=== PATIENT | female | born 1995 | race Two or more races ===

== ENCOUNTER 2016-09-22 19:32 | Emergency (ER) | payer BC ==
[~2016-09-22] VITALS: Ht 154.9 cm; Wt 96.8 kg
[2016-09-22] MEDS ORDERED: PROAAER10 INH (19:44)
[2016-09-22 21:18] LABS: CONTROL LINE HCG INT CTR LINE PRESENT
--- NOTE | 2016-09-22 22:10 | REPUSA ---
Clinical history: Pain. Findings: Real-time transabdominal and transvaginal ultrasound images of the pelvis were obtained. An anteverted uterus is noted, measuring 7.9 x 2.7 x 5.3 cm. The uterus demonstrates normal echotexture and echogenicity. The endometrial stripe measures 8 mm and is within normal limits. The right ovary measures 3.0 x 1.6 x 2.2 cm. The left ovary measures 3.4 x 2.3 x 3.3 cm. No adnexal masses are seen . Color Doppler flow is seen within both ovaries. There is no evidence of free fluid. Impression: No focal abnormality demonstrated. No evidence of an intrauterine at this time . Differential diagnosis includes early , missed , or ectopic . Follow-up w ith serial serum beta hCG levels is recommended for further evaluation.
[2016-09-22 23:01] VITALS: BP 120/81
== END 2016-09-22 23:05 | disposition home or self-care (01) ==
LOC: M ED 19:32
DX: O20.0 Threatened abortion (principal); O99.511 Diseases of the respiratory system complicating pregnancy, first trimester; J45.909 Unspecified asthma, uncomplicated; Z3A.00 Weeks of gestation of pregnancy not specified

== ENCOUNTER → 2016-09-24 | Outpatient (CLI) | payer BC ==
[~2016-09-24] MED LIST: PROAAER10 INH
== END ==
LOC: M LAB 09:49
PROVIDERS: ATTEND Obstetrics & Gynecology
DX: O26.851 Spotting complicating pregnancy, first trimester (principal); Z3A.00 Weeks of gestation of pregnancy not specified

== ENCOUNTER → 2016-09-26 | Outpatient (CLI) | payer BC | LOC: M LAB 07:37 | PROVIDERS: ATTEND Obstetrics & Gynecology | DX: O20.0 Threatened abortion (principal); Z3A.00 Weeks of gestation of pregnancy not specified ==

== ENCOUNTER → 2016-12-02 | Outpatient (REF) | payer BC ==
[~2016-12-02] MED LIST changes: +KEFL500C17 PO; +PREN1TAB11 PO; +SERT25TA PO
== END ==
LOC: M LAB REF 12:22
PROVIDERS: ATTEND Advanced Practice Midwife
DX: O36.80X0 Pregnancy with inconclusive fetal viability, not applicable or unspecified (principal); Z3A.00 Weeks of gestation of pregnancy not specified

== ENCOUNTER → 2017-01-07 | Outpatient (REF) | payer BC ==
[2017-01-07 19:58] LABS: MEAN CORPUSCULAR HEMOGLOBIN 30.6 pg (27.0-33.0); MEAN CORPUSCULAR HGB CONC 33.7 g/dl (32.0-36.5); MEAN CORPUSCULAR VOLUME 90.9 fl (80.0-96.0); PLATELET COUNT, AUTOMATED 361 10^3/uL (150-450); RED CELL DISTRIBUTION WIDTH 12.3 % (11.5-14.5); WHITE BLOOD COUNT 8.9 10^3/uL (4.0-10.0)
[2017-01-07 20:56] LABS: HCG, SERUM QUANTITATIVE 2442 MIU/ML
[2017-01-09 11:54] LABS: HBsAg Prenatal NEGATIVE (NEGATIVE)
== END ==
LOC: M LAB REF 16:47
PROVIDERS: ATTEND Advanced Practice Midwife
DX: O36.80X0 Pregnancy with inconclusive fetal viability, not applicable or unspecified (principal); Z3A.00 Weeks of gestation of pregnancy not specified

== ENCOUNTER 2017-01-31 10:19 | Emergency (ER) | payer BC ==
[~2017-01-31] VITALS: Ht 154.9 cm; Wt 57.8 kg
[~2017-01-31 10:19] MED LIST changes: -KEFL500C17 PO; -PREN1TAB11 PO; -SERT25TA PO
[2017-01-31] MEDS ORDERED: PREN1TAB11 PO (10:27)
[2017-01-31] MEDS ORDERED: SERT25TA PO (10:27)
[2017-01-31 12:10] LABS: BASO % 0.4 % (0.0-1.0); EOS # 0.3 10^3/uL (0.0-0.50); EOS % 2.6 % (0.0-3.0); IMMATURE GRANULOCYTE % 0.5 % (0-0); LYMPH # 1.9 10^3/uL (1.5-6.5); LYMPH % 18.1 % (24.0-44.0); MEAN CORPUSCULAR HEMOGLOBIN 31.1 pg (27.0-33.0); MEAN CORPUSCULAR HGB CONC 34.3 g/dl (32.0-36.5); MEAN CORPUSCULAR VOLUME 90.7 fl (80.0-96.0); MONO # 0.9 10^3/uL (0.0-0.8); MONO % 8.3 % (0.0-5.0); NEUTROPHILS # 7.3 10^3/uL (1.8-7.7); NEUTROPHILS % 70.1 % (36.0-66.0); PLATELET COUNT, AUTOMATED 300 10^3/uL (150-450); RED CELL DISTRIBUTION WIDTH 12.2 % (11.5-14.5); WHITE BLOOD COUNT 10.4 10^3/uL (4.0-10.0)
[2017-01-31 12:22] LABS: INR 0.99
[2017-01-31 12:29] LABS: CONTROL LINE HCG INT CTR LINE PRESENT
[2017-01-31 12:34] LABS: ANION GAP 8 MEQ/L (8-16); BLOOD UREA NITROGEN 5 MG/DL (7-18); CALCIUM LEVEL 9.4 MG/DL (8.5-10.1); CARBON DIOXIDE LEVEL 27 MEQ/L (21-32); CHLORIDE LEVEL 104 MEQ/L (98-107); CREATININE FOR GFR 0.53 MG/DL (0.55-1.02); GLUCOSE, FASTING 85 MG/DL (70-105); POTASSIUM SERUM 4.2 MEQ/L (3.5-5.1); SODIUM LEVEL 139 MEQ/L (136-145)
--- NOTE | 2017-01-31 13:05 | REP ---
Chest one-view HISTORY: Cough Comparison: None The lungs are clear. The heart is normal in size. The pulmonary vasculature is normal in appearance. Impression: No acute disease. Signed by Jose Aguilar MD 01/31/2017 12:56 P
[2017-01-31] MEDS ORDERED: ONDANSETRON 4MG/2ML VIAL (J2405) IV ONE (13:30)
[2017-01-31] MEDS ORDERED: NS 500 ML IV ONE (13:45)
[2017-01-31] MEDS ORDERED: KEFL500C17 PO (13:58)
[2017-01-31 14:04] VITALS: BP 103/63
--- NOTE | 2017-02-01 07:23 | ECGEPIP ---
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
== END 2017-01-31 14:08 | disposition home or self-care (01) ==
LOC: M ED 10:19
DX: O21.0 Mild hyperemesis gravidarum (principal); O26.891 Other specified pregnancy related conditions, first trimester; R55 Syncope and collapse; Z3A.08 8 weeks gestation of pregnancy
CPT/HCPCS: 71010; 80048; 81001; 82550; 82553; 84703; 85025; 85610; 93005; 96374; 99284; J2405

== ENCOUNTER → 2017-04-20 | Outpatient (REF) | payer BC ==
[2017-04-20 14:00] LABS: INFLUENZA A AMPLIFICATION NEGATIVE (NEGATIVE); INFLUENZA B AMPLIFICATION NEGATIVE (NEGATIVE)
== END ==
LOC: M LAB REF 12:59
DX: R68.83 Chills (without fever) (principal)

== ENCOUNTER 2017-06-07 13:55 | Outpatient (CLI) | payer BC ==
[2017-06-07 15:03] LABS: AMORPHOUS SEDIMENT SMALL (NEGATIVE); APPEARANCE, URINE HAZY (CLEAR); BACTERIA, URINE AUTO 3+ (NEGATIVE); BILIRUBIN, URINE AUTO NEGATIVE (NEGATIVE); BLOOD, URINE BLOOD NEGATIVE (NEGATIVE); COLOR, URINE YELLOW (YELLOW); GLUCOSE, URINE (UA) AUTO NEGATIVE (NEGATIVE); KETONE, URINE AUTO NEGATIVE (NEGATIVE); LEUKOCYTE ESTERASE, URINE AUTO 1+ (NEGATIVE); NITRITE, URINE AUTO NEGATIVE (NEGATIVE); PROTEIN, URINE AUTO NEGATIVE (NEGATIVE); RBC, URINE AUTO 3 /HPF (0-3); SPECIFIC GRAVITY URINE AUTO 1.009 (1.002-1.035); SQUAMOUS EPITHELIAL CELL UR AU 7 /HPF (0-6); UROBILINOGEN, URINE AUTO 0.2 mg/dL (0.0-2.0); WBC, URINE AUTO 6 /HPF (0-3)
[2017-06-07] MEDS: CEPHALEXIN 500 MG CAP PO (16:05)
== END 2017-06-07 16:09 | disposition home or self-care (01) ==
LOC: M LDO 13:55
DX: O99.89 Other specified diseases and conditions complicating pregnancy, childbirth and the puerperium (principal); Z3A.26 26 weeks gestation of pregnancy; O62.0 Primary inadequate contractions; O23.42 Unspecified infection of urinary tract in pregnancy, second trimester; N13.30 Unspecified hydronephrosis
CPT/HCPCS: 76775

== ENCOUNTER → 2017-06-09 | Outpatient (CLI) | payer OTHER ==
[2017-06-09 12:17] LABS: HEMATOCRIT 33.5 % (36.0-47.0); HEMOGLOBIN 11.4 g/dl (12.0-16.0); MEAN CORPUSCULAR HEMOGLOBIN 31.4 pg (27.0-33.0); MEAN CORPUSCULAR VOLUME 92.3 fl (80.0-96.0); PLATELET COUNT, AUTOMATED 264 10^3/uL (150-450); RED BLOOD COUNT 3.63 10^6/uL (4.00-5.40); RED CELL DISTRIBUTION WIDTH 12.4 % (11.5-14.5); WHITE BLOOD COUNT 11.6 10^3/uL (4.0-10.0)
[2017-06-09 12:44] LABS: GLUCOSE CHALLENGE TEST 1 HOUR 108 MG/DL (LESS THAN 140)
== END ==
LOC: M LAB 10:29
DX: Z34.81 Encounter for supervision of other normal pregnancy, first trimester (principal)
CPT/HCPCS: 82950

== ENCOUNTER 2017-07-04 05:24 | Outpatient (CLI) | payer OTHER | END 2017-07-04 06:03 | disposition home or self-care (01) | LOC: M LDO 05:24 | DX: O26.893 Other specified pregnancy related conditions, third trimester (principal); R10.13 Epigastric pain; Z3A.30 30 weeks gestation of pregnancy | CPT/HCPCS: 59025 ==

== ENCOUNTER 2017-07-17 21:55 | Outpatient (CLI) | payer OTHER | END 2017-07-17 23:30 | disposition home or self-care (01) | LOC: M LDO 21:55 | DX: O36.8130 Decreased fetal movements, third trimester, not applicable or unspecified (principal); Z3A.32 32 weeks gestation of pregnancy | CPT/HCPCS: 59025 ==

== ENCOUNTER 2017-08-04 12:41 | Outpatient (CLI) | payer OTHER ==
[~2017-08-04 12:41] MED LIST changes: +PRENATAL VITAMINS CHEWABLE TABLET PO; -PROAAER10 INH
[2017-08-04] MEDS: LR 1,000 ML IV ×2 (13:43→14:45)
[2017-08-04 14:07] LABS: BASO % 0.1 % (0.0-1.0); EOS % 0.3 % (0.0-3.0); HEMATOCRIT 31.8 % (36.0-47.0); HEMOGLOBIN 10.8 g/dl (12.0-15.5); IMMATURE GRANULOCYTE % 0.6 % (0-3.0); LYMPH # 2.2 10^3/uL (1.5-6.5); LYMPH % 19.9 % (24.0-44.0); MEAN CORPUSCULAR HEMOGLOBIN 30.1 pg (27.0-33.0); MEAN CORPUSCULAR VOLUME 88.6 fl (80.0-96.0); MONO # 0.8 10^3/uL (0.0-0.8); NEUTROPHILS % 72.1 % (36.0-66.0); PLATELET COUNT, AUTOMATED 302 10^3/uL (150-450); RED BLOOD COUNT 3.59 10^6/uL (4.00-5.40); RED CELL DISTRIBUTION WIDTH 12.5 % (11.5-14.5); WHITE BLOOD COUNT 11.1 10^3/uL (4.0-10.0)
[2017-08-04 14:27] LABS: ANION GAP 8 MEQ/L (8-16); BLOOD UREA NITROGEN 6 MG/DL (7-18); CALCIUM LEVEL 8.7 MG/DL (8.5-10.1); CARBON DIOXIDE LEVEL 23 MEQ/L (21-32); CHLORIDE LEVEL 108 MEQ/L (98-107); CREATININE FOR GFR 0.53 MG/DL (0.55-1.30); GLUCOSE, FASTING 71 MG/DL (70-100); POTASSIUM SERUM 3.8 MEQ/L (3.5-5.1); SODIUM LEVEL 139 MEQ/L (136-145)
[2017-08-04 15:11] LABS: APPEARANCE, URINE CLEAR (CLEAR); BACTERIA, URINE AUTO 2+ (NEGATIVE); BILIRUBIN, URINE AUTO NEGATIVE (NEGATIVE); BLOOD, URINE BLOOD NEGATIVE (NEGATIVE); COLOR, URINE STRAW (YELLOW); GLUCOSE, URINE (UA) AUTO NEGATIVE (NEGATIVE); KETONE, URINE AUTO TRACE mg/dL (NEGATIVE); LEUKOCYTE ESTERASE, URINE AUTO NEGATIVE (NEGATIVE); NITRITE, URINE AUTO NEGATIVE (NEGATIVE); PROTEIN, URINE AUTO NEGATIVE (NEGATIVE); RBC, URINE AUTO 0 /HPF (0-3); SPECIFIC GRAVITY URINE AUTO 1.004 (1.002-1.035); SQUAMOUS EPITHELIAL CELL UR AU 0 /HPF (0-6); UROBILINOGEN, URINE AUTO 0.2 mg/dL (0.0-2.0); WBC, URINE AUTO 1 /HPF (0-3)
[2017-08-04 15:22] LABS: AMPHETAMINES URINE REFLEX NEGATIVE (NEGATIVE); BARBITURATES URINE REFLEX NEGATIVE (NEGATIVE); BENZODIAZEPINES URINE REFLEX NEGATIVE (NEGATIVE); CANNABINOIDS URINE REFLEX NEGATIVE (NEGATIVE); COCAINE METABOLITE URINE REFLE NEGATIVE (NEGATIVE); METHADONE URINE REFLEX NEGATIVE (NEGATIVE); OPIATES URINE REFLEX NEGATIVE (NEGATIVE); PHENCYCLIDINE URINE REFLEX NEGATIVE (NEGATIVE)
[2017-08-04] MEDS ORDERED: TERBUTALINE SULFATE 1 MG/ML VIAL (J3105) As Ordered (15:24)
[2017-08-04] MEDS ORDERED: PERCOCET 5MG/325MG TAB PO (15:30)
[2017-08-04] MEDS: TERBUTALINE SULFATE 1 MG/ML VIAL (J3105) SC (15:36)
[2017-08-04] MEDS: TAMSULOSIN 0.4 MG CAP PO (16:18)
[2017-08-04] MEDS ORDERED: OXYTOCIN DRIP 30 UNITS in APPROPRIATE DILUENT 1 EA IV (16:28)
[2017-08-04] MEDS ORDERED: MEASLES,MUMPS,RUBELLA VACCINE INJ (MMR-II) (90707) SC (16:30)
[2017-08-04] MEDS ORDERED: METHYLERGONOVINE MALEATE 0.2 MG TAB PO (16:30)
[2017-08-04] MEDS ORDERED: DOCUSATE SODIUM 100 MG CAP PO (16:30)
[2017-08-04] MEDS ORDERED: DIBUCAINE 1% OINTMENT 30GM TOP (16:30)
[2017-08-04] MEDS ORDERED: RHOGAM 300 MCG (1500 IU) INJ (J2790) IM (16:30)
[2017-08-04] MEDS ORDERED: ACETAMINOPHEN 500 MG TAB PO (16:30)
[2017-08-04] MEDS ORDERED: IBUPROFEN 800 MG TAB PO (16:30)
== END 2017-08-04 19:03 | disposition home or self-care (01) ==
LOC: M LDO 12:41
DX: O26.893 Other specified pregnancy related conditions, third trimester (principal); R10.32 Left lower quadrant pain; O26.833 Pregnancy related renal disease, third trimester; Z3A.34 34 weeks gestation of pregnancy
CPT/HCPCS: J3105

== ENCOUNTER → 2017-08-10 | Outpatient (REF) | payer OTHER | LOC: M LAB REF 17:25 | DX: Z34.83 Encounter for supervision of other normal pregnancy, third trimester (principal); Z3A.35 35 weeks gestation of pregnancy ==

== ENCOUNTER 2017-08-12 04:21 | Outpatient (CLI) | payer OTHER ==
[2017-08-12] MEDS: LR 1,000 ML IV (05:30)
[2017-08-12 05:46] LABS: BASO % 0.3 % (0.0-1.0); EOS # 0.1 10^3/uL (0.0-0.50); EOS % 0.8 % (0.0-3.0); HEMATOCRIT 30.8 % (36.0-47.0); HEMOGLOBIN 10.2 g/dl (12.0-15.5); LYMPH # 2.7 10^3/uL (1.5-6.5); LYMPH % 25.9 % (24.0-44.0); MEAN CORPUSCULAR HEMOGLOBIN 29.7 pg (27.0-33.0); MEAN CORPUSCULAR HGB CONC 33.1 g/dl (32.0-36.5); MEAN CORPUSCULAR VOLUME 89.8 fl (80.0-96.0); MONO % 9.5 % (0.0-5.0); NEUTROPHILS # 6.6 10^3/uL (1.8-7.7); NEUTROPHILS % 62.5 % (36.0-66.0); PLATELET COUNT, AUTOMATED 249 10^3/uL (150-450); RED BLOOD COUNT 3.43 10^6/uL (4.00-5.40); RED CELL DISTRIBUTION WIDTH 12.6 % (11.5-14.5); WHITE BLOOD COUNT 10.6 10^3/uL (4.0-10.0)
[2017-08-12 05:56] LABS: APPEARANCE, URINE CLEAR (CLEAR); BACTERIA, URINE AUTO 1+ (NEGATIVE); BILIRUBIN, URINE AUTO NEGATIVE (NEGATIVE); BLOOD, URINE BLOOD NEGATIVE (NEGATIVE); COLOR, URINE STRAW (YELLOW); GLUCOSE, URINE (UA) AUTO NEGATIVE (NEGATIVE); KETONE, URINE AUTO NEGATIVE (NEGATIVE); LEUKOCYTE ESTERASE, URINE AUTO NEGATIVE (NEGATIVE); NITRITE, URINE AUTO NEGATIVE (NEGATIVE); PROTEIN, URINE AUTO NEGATIVE (NEGATIVE); RBC, URINE AUTO 1 /HPF (0-3); SPECIFIC GRAVITY URINE AUTO 1.004 (1.002-1.035); SQUAMOUS EPITHELIAL CELL UR AU 1 /HPF (0-6); UROBILINOGEN, URINE AUTO 0.2 mg/dL (0.0-2.0); WBC, URINE AUTO 1 /HPF (0-3)
== END 2017-08-12 07:57 | disposition home or self-care (01) ==
LOC: M LDO 04:21
DX: O26.893 Other specified pregnancy related conditions, third trimester (principal); R10.30 Lower abdominal pain, unspecified; Z87.442 Personal history of urinary calculi; Z3A.36 36 weeks gestation of pregnancy
CPT/HCPCS: 76775

== ENCOUNTER 2017-08-28 11:39 | Inpatient (IN) | payer OTHER ==
[2017-08-28] MEDS ORDERED: LACTATED RINGER'S 1000 ML IV (12:15)
[2017-08-28 12:42] LABS: HEMATOCRIT 30.8 % (36.0-47.0); HEMOGLOBIN 10.2 g/dl (12.0-15.5); MEAN CORPUSCULAR HEMOGLOBIN 28.9 pg (27.0-33.0); MEAN CORPUSCULAR HGB CONC 33.1 g/dl (32.0-36.5); MEAN CORPUSCULAR VOLUME 87.3 fl (80.0-96.0); PLATELET COUNT, AUTOMATED 288 10^3/uL (150-450); RED BLOOD COUNT 3.53 10^6/uL (4.00-5.40); RED CELL DISTRIBUTION WIDTH 13.2 % (11.5-14.5); WHITE BLOOD COUNT 13.5 10^3/uL (4.0-10.0)
[2017-08-28 13:04] LABS: ALT/SGPT 14 U/L (12-78); AST/SGOT 27 U/L (7-37); BILIRUBIN,TOTAL 1.1 MG/DL (0.2-1.0); CREATININE FOR GFR 0.66 MG/DL (0.55-1.30); LDH LACTATE DEHYDROGENASE 272 U/L (84-246); URIC ACID 4.7 MG/DL (2.6-6.0)
[2017-08-28 13:52] LABS: CREATININE,RANDOM URINE 56.3 MG/DL
[2017-08-28] MEDS: miSOPROStol 50 MCG 1/2 TAB (S0191) PO (14:32)
[2017-08-28] MEDS: LR 1,000 ML IV (21:52)
[2017-08-28] MEDS: OXYTOCIN DRIP 30 UNITS in APPROPRIATE DILUENT 1 EA IV (23:23)
[2017-08-29 05:32] LABS: HEMATOCRIT 29.9 % (36.0-47.0); MEAN CORPUSCULAR HEMOGLOBIN 29.2 pg (27.0-33.0); MEAN CORPUSCULAR HGB CONC 33.4 g/dl (32.0-36.5); MEAN CORPUSCULAR VOLUME 87.4 fl (80.0-96.0); PLATELET COUNT, AUTOMATED 261 10^3/uL (150-450); RED BLOOD COUNT 3.42 10^6/uL (4.00-5.40); RED CELL DISTRIBUTION WIDTH 13.3 % (11.5-14.5); WHITE BLOOD COUNT 12.9 10^3/uL (4.0-10.0)
[2017-08-29 06:04] LABS: ALT/SGPT 13 U/L (12-78); AST/SGOT 19 U/L (7-37); BILIRUBIN,TOTAL 1.1 MG/DL (0.2-1.0); CREATININE FOR GFR 0.65 MG/DL (0.55-1.30); LDH LACTATE DEHYDROGENASE 187 U/L (84-246); URIC ACID 4.4 MG/DL (2.6-6.0)
[2017-08-29] MEDS ORDERED: FENTANYL 2MCG/ML ROPIVACAINE 0.2% IN 0.9% NACL 200ML IVBAG As Ordered (11:58)
[2017-08-29] MEDS ORDERED: LACTATED RINGER'S 1000 ML IV (14:30)
[2017-08-29] MEDS ORDERED: NALOXONE INJ 0.4 MG/1 ML VIAL (J2310) IV (14:30)
[2017-08-29] MEDS ORDERED: EPIDURAL/PCA KEYS XX (14:30)
[2017-08-29] MEDS ORDERED: FENTANYL/ROPIVACAINE/NACL BAG 200 ML EPIDURAL (14:30)
[2017-08-29] MEDS ORDERED: REFRIGERATOR IV KEYS XX (14:30)
[2017-08-29] MEDS ORDERED: diphenhydrAMINE INJ 50MG/ML VIAL (J1200) IV (14:30)
[2017-08-29] MEDS ORDERED: ePHEDrine SULFATE 25 MG/5 ML(5MG/ML) SYRINGE IV (14:30)
[2017-08-29] MEDS ORDERED: EPIDURAL COMMENT XX (14:30)
[2017-08-29] MEDS: ONDANSETRON 4MG/2ML VIAL (J2405) IV (19:38)
[2017-08-29] MEDS ORDERED: OXYTOCIN 30 UNITS IN 0.9% NaCl 500ML IV BAG (J2590) As Ordered (20:02)
[2017-08-29] MEDS: LR 1,000 ML IV (21:56)
[2017-08-30] MEDS ORDERED: BICITRA 30ML SOLN UDC As Ordered (02:30)
[2017-08-30 03:04] LABS: CORD GAS ABE A -11.6; CORD GAS ABE V -11.8; CORD GAS HCO3 A 18.6 MEQ/L; CORD GAS HCO3 V 17.7 MEQ/L; CORD GAS O2 SAT A 21.4 %; CORD GAS PCO2 A 61.3 mmHg; CORD GAS PCO2 V 55.2 mmHg; CORD GAS PH A 7.101 UNITS; CORD GAS PH V 7.125 UNITS; CORD GAS PO2 A 16.9 mmHg; CORD GAS PO2 V 16.2 mmHg; CORD GAS SBC V 13.9 MEQ/L; CORD GAS TCO2 A 20.5 MEQ/L; CORD GAS TCO2 V 19.4 MEQ/L
[2017-08-30] MEDS: OXYTOCIN DRIP 30 UNITS in APPROPRIATE DILUENT 1 EA IV ×6 (03:17→21:31)
[2017-08-30] MEDS ORDERED: ANUSOL HC CREAM 30GM TOP (03:30)
[2017-08-30] MEDS: METHYLERGONOVINE MALEATE 0.2 MG/ML VIAL (J2210) IM (05:37)
[2017-08-30] MEDS: ACETAMINOPHEN 500 MG TAB PO ×2 (05:54→19:41)
[2017-08-30 08:15] LABS: HEMATOCRIT 22.1 % (36.0-47.0); HEMOGLOBIN 7.3 g/dl (12.0-15.5); MEAN CORPUSCULAR HEMOGLOBIN 29.1 pg (27.0-33.0); PLATELET COUNT, AUTOMATED 215 10^3/uL (150-450); RED BLOOD COUNT 2.51 10^6/uL (4.00-5.40); RED CELL DISTRIBUTION WIDTH 13.5 % (11.5-14.5); WHITE BLOOD COUNT 25.9 10^3/uL (4.0-10.0)
[2017-08-30 08:37] LABS: ALT/SGPT 17 U/L (12-78); AST/SGOT 43 U/L (7-37); BILIRUBIN,TOTAL 1.8 MG/DL (0.2-1.0); CREATININE FOR GFR 0.99 MG/DL (0.55-1.30); LDH LACTATE DEHYDROGENASE 419 U/L (84-246); URIC ACID 5.9 MG/DL (2.6-6.0)
[2017-08-30] MEDS: PRENATAL VITAMINS CHEWABLE TABLET PO (09:00)
[2017-08-30] MEDS: DOCUSATE SODIUM 100 MG CAP PO ×2 (09:00→19:40)
[2017-08-30] MEDS: IBUPROFEN 800 MG TAB PO (10:51)
[2017-08-30] MEDS: DIBUCAINE 1% OINTMENT 30GM TOP (19:41)
[2017-08-31] MEDS: OXYTOCIN DRIP 30 UNITS in APPROPRIATE DILUENT 1 EA IV ×3 (05:30→13:30)
[2017-08-31] MEDS: IBUPROFEN 800 MG TAB PO (05:52)
[2017-08-31] MEDS: ONDANSETRON 4MG/2ML VIAL (J2405) IV (06:24)
[2017-08-31 06:56] LABS: HEMATOCRIT 16.8 % (36.0-47.0); MEAN CORPUSCULAR HEMOGLOBIN 29.6 pg (27.0-33.0); MEAN CORPUSCULAR HGB CONC 33.3 g/dl (32.0-36.5); MEAN CORPUSCULAR VOLUME 88.9 fl (80.0-96.0); PLATELET COUNT, AUTOMATED 188 10^3/uL (150-450); RED BLOOD COUNT 1.89 10^6/uL (4.00-5.40); RED CELL DISTRIBUTION WIDTH 13.8 % (11.5-14.5); WHITE BLOOD COUNT 19.1 10^3/uL (4.0-10.0)
[2017-08-31 07:00] LABS: HEMOGLOBIN 5.6 g/dl (12.0-15.5)
[2017-08-31] MEDS: PRENATAL VITAMINS CHEWABLE TABLET PO (07:40)
[2017-08-31] MEDS: DOCUSATE SODIUM 100 MG CAP PO ×2 (07:40→19:41)
[2017-08-31] MEDS: MEASLES,MUMPS,RUBELLA VACCINE INJ (MMR-II) (90707) SC (07:40)
[2017-08-31] MEDS: RHOGAM 300 MCG (1500 IU) INJ (J2790) IM (07:41)
[2017-08-31 08:11] LABS: IMMEDIATE SPIN CROSSMATCH 1 2
[2017-08-31 08:44] LABS: ALT/SGPT 18 U/L (12-78); AST/SGOT 34 U/L (7-37); BILIRUBIN,TOTAL 0.5 MG/DL (0.2-1.0); LDH LACTATE DEHYDROGENASE 200 U/L (84-246); URIC ACID 5.5 MG/DL (2.6-6.0)
[2017-08-31] MEDS: ACETAMINOPHEN 500 MG TAB PO (21:51)
[2017-09-01 06:52] LABS: HEMATOCRIT 24.8 % (36.0-47.0); MEAN CORPUSCULAR HGB CONC 33.9 g/dl (32.0-36.5); MEAN CORPUSCULAR VOLUME 88.6 fl (80.0-96.0); PLATELET COUNT, AUTOMATED 212 10^3/uL (150-450); RED CELL DISTRIBUTION WIDTH 14.1 % (11.5-14.5); WHITE BLOOD COUNT 15.6 10^3/uL (4.0-10.0)
[2017-09-01 06:55] LABS: HEMOGLOBIN 8.4 g/dl (12.0-15.5)
[2017-09-01] MEDS: PRENATAL VITAMINS CHEWABLE TABLET PO (08:44)
[2017-09-01] MEDS: DOCUSATE SODIUM 100 MG CAP PO (08:44)
== END 2017-09-01 12:15 | disposition home or self-care (01) | DRG 775 ==
LOC: M LDI 11:39 → M OBS 08-30 15:43
PROVIDERS: Obstetrics & Gynecology
PROC: 3E0DXGC Introduction of Other Therapeutic Substance into Mouth and Pharynx, External Approach (ICD-10-PCS; 2017-08-28)
PROC: 10D07Z6 Extraction of Products of Conception, Vacuum, Via Natural or Artificial Opening (ICD-10-PCS; principal; 2017-08-30)
PROC: 0KQM0ZZ Repair Perineum Muscle, Open Approach (ICD-10-PCS; 2017-08-30)
DX: O14.94 Unspecified pre-eclampsia, complicating childbirth (principal); Z37.0 Single live birth; Z3A.38 38 weeks gestation of pregnancy; O76 Abnormality in fetal heart rate and rhythm complicating labor and delivery; O70.1 Second degree perineal laceration during delivery

== ENCOUNTER 2017-09-01 14:57 | Emergency (ER) | payer OTHER ==
[2017-09-01] MEDS: NS 1,000 ML IV (15:30)
[2017-09-01 16:04] LABS: BASO # 0.1 10^3/uL (0.0-0.2); BASO % 0.3 % (0.0-1.0); EOS # 0.1 10^3/uL (0.0-0.50); EOS % 0.9 % (0.0-3.0); HEMATOCRIT 25.4 % (36.0-47.0); HEMOGLOBIN 8.5 g/dl (12.0-15.5); IMMATURE GRANULOCYTE % 1.3 % (0-3.0); LYMPH # 2.3 10^3/uL (1.5-6.5); MEAN CORPUSCULAR HEMOGLOBIN 29.7 pg (27.0-33.0); MEAN CORPUSCULAR HGB CONC 33.5 g/dl (32.0-36.5); MEAN CORPUSCULAR VOLUME 88.8 fl (80.0-96.0); MONO # 0.9 10^3/uL (0.0-0.8); MONO % 5.6 % (0.0-5.0); NEUTROPHILS # 11.7 10^3/uL (1.8-7.7); NEUTROPHILS % 76.9 % (36.0-66.0); PLATELET COUNT, AUTOMATED 224 10^3/uL (150-450); RED BLOOD COUNT 2.86 10^6/uL (4.00-5.40); RED CELL DISTRIBUTION WIDTH 14.1 % (11.5-14.5); WHITE BLOOD COUNT 15.3 10^3/uL (4.0-10.0)
[2017-09-01 16:27] LABS: ALBUMIN 2.2 GM/DL (3.2-5.2); ALBUMIN/GLOBULIN RATIO 0.85 (1.00-1.93); ALKALINE PHOSPHATASE 118 U/L (45-117); ALT/SGPT 24 U/L (12-78); ANION GAP 9 MEQ/L (8-16); AST/SGOT 29 U/L (7-37); BILIRUBIN,DIRECT 0.2 MG/DL (0.0-0.2); BILIRUBIN,TOTAL 0.7 MG/DL (0.2-1.0); BLOOD UREA NITROGEN 8 MG/DL (7-18); CALCIUM LEVEL 7.4 MG/DL (8.5-10.1); CARBON DIOXIDE LEVEL 25 MEQ/L (21-32); CHLORIDE LEVEL 109 MEQ/L (98-107); CREATININE FOR GFR 0.68 MG/DL (0.55-1.30); GLUCOSE, FASTING 80 MG/DL (70-100); POTASSIUM SERUM 3.4 MEQ/L (3.5-5.1); SODIUM LEVEL 143 MEQ/L (136-145); TOTAL PROTEIN 4.8 GM/DL (6.4-8.2)
== END 2017-09-01 18:20 | disposition home or self-care (01) ==
LOC: M ED 14:57
DX: O72.2 Delayed and secondary postpartum hemorrhage (principal); Z87.442 Personal history of urinary calculi
CPT/HCPCS: 80076

== ENCOUNTER → 2018-01-05 | Outpatient (CLI) | payer OTHER ==
[2018-01-05 13:51] LABS: HEMATOCRIT 38.4 % (36.0-47.0); HEMOGLOBIN 12.3 g/dl (12.0-15.5); MEAN CORPUSCULAR HEMOGLOBIN 27.4 pg (27.0-33.0); MEAN CORPUSCULAR VOLUME 85.5 fl (80.0-96.0); PLATELET COUNT, AUTOMATED 337 10^3/uL (150-450); RED BLOOD COUNT 4.49 10^6/uL (4.00-5.40); RED CELL DISTRIBUTION WIDTH 14.2 % (11.5-14.5)
== END ==
LOC: M WUC 12:00
DX: D64.9 Anemia, unspecified (principal)
CPT/HCPCS: 85027

== ENCOUNTER → 2022-11-17 | Outpatient (REF) | payer OTHER ==
[~2022-11-17] MED LIST changes: +ALB2.5NEB INH; +FLOM0.4C39 PO; +IBUP-1114 PO; +KEFL500C17 PO; +MAPA500T2 PO; +PREN1TAB11 PO; -PRENATAL VITAMINS CHEWABLE TABLET PO; +PROAAER10 INH; +SERT25TA85 PO; +TUMS1000 PO
== END ==
LOC: M SFHCWAGY 13:26
PROVIDERS: ATTEND Nurse Practitioner Family
DX: Z12.4 Encounter for screening for malignant neoplasm of cervix (principal)

== ENCOUNTER → 2024-01-20 | Outpatient (REF) | payer OTHER | LOC: M SFHCWAGY 14:49 | PROVIDERS: ATTEND Nurse Practitioner Family | DX: N73.9 Female pelvic inflammatory disease, unspecified (principal) ==

== ENCOUNTER → 2024-03-25 | Outpatient (CLI) | payer OTHER | LOC: M PLALAB 13:40 | PROVIDERS: ATTEND Obstetrics & Gynecology | DX: Z34.80 Encounter for supervision of other normal pregnancy, unspecified trimester (principal) ==

== ENCOUNTER → 2024-07-11 | Outpatient (CLI) | payer OTHER ==
[2024-07-11 14:15] LABS: HEMATOCRIT 36.7 % (36.0-47.0); MEAN CORPUSCULAR HEMOGLOBIN 31.6 pg (27.0-33.0); MEAN CORPUSCULAR HGB CONC 32.7 g/dl (32.0-36.5); MEAN CORPUSCULAR VOLUME 96.6 fl (80.0-96.0); PLATELET COUNT, AUTOMATED 284 10^3/uL (150-450); WHITE BLOOD COUNT 11.1 10^3/uL (4.0-10.0)
[2024-07-11 14:26] LABS: Trichomonas vaginalis (AMP) NOT DETECTED (NEGATIVE)
[2024-07-11 14:41] LABS: TOTAL PROTEIN,RANDOM URINE 13.5 MG/DL (0.0-14.0)
[2024-07-11 14:42] LABS: URIC ACID 3.9 MG/DL (3.1-7.8)
[2024-07-11 14:44] LABS: CREATININE,RANDOM URINE 149.2 MG/DL; LDH LACTATE DEHYDROGENASE 171 U/L (120-246)
[2024-07-11 14:45] LABS: ALT/SGPT 13 U/L (7.0-40); AST/SGOT 15 U/L (<34); BILIRUBIN,TOTAL 0.6 MG/DL (0.3-1.2); CREATININE FOR GFR 0.51 MG/DL (0.55-1.30); GLOMERULAR FILTRATION RATE > 90.0 (>60); GLUCOSE CHALLENGE TEST 1 HOUR 88 MG/DL (LESS THAN 140)
[2024-07-11 14:50] LABS: GC DNA AMPLIFICATION NEGATIVE (NEGATIVE)
[2024-07-11 15:18] LABS: HIV 1&2 SCREEN NEGATIVE (NEGATIVE)
[2024-07-11 15:26] LABS: HEPATITIS C VIRUS ABY INDEX 0.04 INDEX (<0.8)
== END ==
LOC: M PLALAB 10:13
PROVIDERS: ATTEND Specialist
DX: Z34.82 Encounter for supervision of other normal pregnancy, second trimester (principal); Z3A.00 Weeks of gestation of pregnancy not specified

== ENCOUNTER 2024-09-25 21:05 | Outpatient (CLI) | payer OTHER ==
[~2024-09-25] VITALS: Ht 157.5 cm; Wt 79.9 kg
[~2024-09-25 21:05] MED LIST changes: -FLOM0.4C39 PO; +TAMS-18 PO
[2024-09-25 21:18] VITALS: BP 109/81
[2024-10-03] MEDS ORDERED: PROZ10CA7 PO (10:26)
== END 2024-09-25 23:41 | disposition home or self-care (01) ==
LOC: M LDO 21:05
PROVIDERS: ATTEND Obstetrics & Gynecology
DX: O47.1 False labor at or after 37 completed weeks of gestation (principal); O35.10X0 Maternal care for (suspected) chromosomal abnormality in fetus, unspecified, not applicable or unspecified; O26.23 Pregnancy care for patient with recurrent pregnancy loss, third trimester; O99.343 Other mental disorders complicating pregnancy, third trimester; F41.9 Anxiety disorder, unspecified; Z87.59 Personal history of other complications of pregnancy, childbirth and the puerperium; Z3A.37 37 weeks gestation of pregnancy
CPT/HCPCS: 59025; G0463

== ENCOUNTER 2024-10-03 10:01 | Inpatient (IN) | payer OTHER ==
[2024-10-03] VITALS (11 sets, daily range): BP systolic 122–138; BP diastolic 68–83
[~2024-10-03] VITALS: Ht 157.5 cm; Wt 79.9 kg
[2024-10-03] MEDS ORDERED: LIDOCAINE 1% MDV 20 ML VIAL INFIL PRN (10:20)
[2024-10-03] MEDS ORDERED: OXYTOCIN INJ 10UNITS/ML 1ML VIAL IM PRN (10:20)
[2024-10-03] MEDS ORDERED: METHYLERGONOVINE MALEATE 0.2 MG/ML 1 ML VIAL IM PRN (10:20)
[2024-10-03] MEDS ORDERED: CARBOPROST TROMETHAMINE 250 MCG/ML AMP IM PRN (10:20)
[2024-10-03] MEDS ORDERED: PRENTAB9 PO (10:26)
[2024-10-03] MEDS ORDERED: PROZ10CA11 PO (10:26)
[2024-10-03] MEDS ORDERED: TUMS750C5 PO (10:26)
[2024-10-03] MEDS ORDERED: HOME MED LIST COMPLETE! XX SCH (10:30)
[2024-10-03 11:19] LABS: PLATELET COUNT, AUTOMATED 254 10^3/uL (150-450)
[2024-10-03] MEDS: miSOPROStol 50 MCG 1/2 TABLET PO SCH (11:40)
[2024-10-03 12:23] LABS: HIV 1&2 SCREEN NEGATIVE (NEGATIVE)
[2024-10-03 12:31] LABS: HEPATITIS C VIRUS ABY INDEX < 0.02 INDEX (<0.8)
[2024-10-03] MEDS: LACTATED RINGER'S 1000 ML IV STA (16:22)
[2024-10-03] MEDS: OXYTOCIN DRIP 30 UNITS in IV 1 EA IV SCH (16:22)
[2024-10-03] MEDS: LR 1,000 ML IV SCH (16:22)
[2024-10-03] MEDS ORDERED: NALOXONE INJ 0.4 MG/1 ML VIAL IV PRN (19:45)
[2024-10-03] MEDS ORDERED: LR 500 ML IV PRN (19:45)
[2024-10-03] MEDS ORDERED: EPIDURAL/PCA KEYS XX PRN (19:45)
[2024-10-03] MEDS ORDERED: diphenhydrAMINE 50 MG/ML VIAL IV PRN (19:45)
[2024-10-03] MEDS: FENTANYL/ROPIVACAINE/NACL BAG 100 ML EPIDURAL SCH (20:15)
[2024-10-03] MEDS: ONDANSETRON 4MG 2ML VIAL IV PRN (20:20)
[2024-10-03] MEDS: OXYTOCIN DRIP 30 UNITS in IV 1 EA IV PRN (23:25)
[2024-10-03] MEDS: TRANEXAMIC ACID INJection 1,000 MG in NS 100 ML IV PRN (23:25)
[2024-10-03] MEDS ORDERED: RHOGAM 300MCG (1500IU) INJ IM SCH (23:55)
[2024-10-03] MEDS ORDERED: ANUSOL HC CREAM 30 GM TOP PRN (23:55)
[2024-10-03] MEDS ORDERED: ACETAMINOPHEN 325 MG TAB PO PRN (23:55)
[2024-10-03] MEDS ORDERED: MOM 30 ML SUSPENSION UDC PO PRN (23:55)
[2024-10-04 01:25] VITALS: BP 119/64; O2SAT 99
[2024-10-04] MEDS: DIBUCAINE 1% OINTMENT 30 GM TOP PRN (01:58)
[2024-10-04] MEDS: ACETAMINOPHEN 500 MG TAB PO PRN (01:58)
[2024-10-04] MEDS: IBUPROFEN 800 MG TAB PO PRN (05:05)
[2024-10-04 06:00] VITALS: BP 125/59; O2SAT 96
[2024-10-04] MEDS: PRENATAL VITAMINS CHEWABLE TABLET PO SCH (08:12)
[2024-10-04] MEDS: DOCUSATE SODIUM 100 MG CAPSULE PO PRN (08:12)
[2024-10-04] MEDS: IBUPROFEN 600 MG TAB PO PRN (12:33)
[2024-10-04 17:59] VITALS: BP 119/68; O2SAT 98
[2024-10-05 05:46] VITALS: BP 117/67; O2SAT 99
[2024-10-05] MEDS: MEASLES,MUMPS,RUBELLA VACCINE INJ (MMR-II) SC.IMMUN ONE (07:42)
== END 2024-10-05 12:10 | disposition home or self-care (01) | DRG 807 ==
LOC: M LDI 10:01 → M OBS 10-04 01:20
PROVIDERS: ADMIT Advanced Practice Midwife; ATTEND Advanced Practice Midwife
PROC: 10E0XZZ Delivery of Products of Conception, External Approach (ICD-10-PCS; principal; 2024-10-03)
PROC: 10907ZC Drainage of Amniotic Fluid, Therapeutic from Products of Conception, Via Natural or Artificial Opening (ICD-10-PCS; 2024-10-03)
PROC: 0HQ9XZZ Repair Perineum Skin, External Approach (ICD-10-PCS; 2024-10-03)
PROC: 3E0P7GC Introduction of Other Therapeutic Substance into Female Reproductive, Via Natural or Artificial Opening (ICD-10-PCS; 2024-10-03)
DX: O32.6XX0 Maternal care for compound presentation, not applicable or unspecified (principal); Z37.0 Single live birth; Z3A.39 39 weeks gestation of pregnancy; O70.0 First degree perineal laceration during delivery

== ENCOUNTER → 2025-03-13 | Outpatient (REF) | payer OTHER ==
[~2025-03-13] MED LIST changes: +PRENTAB9 PO; +PROZ10CA11 PO; +TUMS750C5 PO
[2025-03-15 16:02] LABS: HPV APTIMA Not Detected (Not Detected)
== END ==
LOC: M SFHCWAGY 15:43
PROVIDERS: ATTEND Nurse Practitioner Family
DX: Z11.51 Encounter for screening for human papillomavirus (HPV) (principal)
CPT/HCPCS: 87624; G0123